=== PATIENT | male | born 1955 | race Caucasian/White ===

== ENCOUNTER 2018-07-06 09:39 | Inpatient (IN) | payer MEDICAID ==
[~2018-07-06] VITALS: Ht 175.3 cm; Wt 104.3 kg
--- NOTE | ~2018-07-06 | CON ---
[place], [place] REPORT OF CONSULTATION NAME: ED MARTINEZ UNIT #: [id number] ROOM: 403 DOCTOR: JANE SHERMAN MD, FACC BIRTHDATE: [birth year] DOS: 07/07/2018 CARDIOLOGY CONSULTATION HISTORY OF PRESENT ILLNESS: The patient came in with marked swelling of the right lower extremity below the knee and severe cellulitis and chronic thickening of the skin, but similar warmth on both sides, no cold legs, and could not feel the pulse because of severe edema but both the femoral pulses are good, maybe to some extent or less on the right than the left, inlet disease could be expected but does not appear to be critical. Still, the pulse is fairly good volume and good right femoral. The patient claims this is all started only several weeks ago, but I believe it could be even longer, that chronic infection could be a contributing factor. The patient has peripheral arterial disease with monophasic pulse on the right and underlying inlet disease may be of consideration, but there does not appear to be critical flow abnormalities. Hence, at this time, probably we could manage conservatively. PHYSICAL EXAMINATION: NECK: No jugular venous distention noted. Neck is supple. HEART: S1, S2 heard well. LUNGS: Diminished breath sounds at the bases. NEUROLOGIC: Cognition is good. IMPRESSION: He does not appear to have any significant cardiac decompensation clinically at this time. Dr. Bojorquez has seen the patient and sent him from the office and through the Emergency Room and admitted for further management. The patient is getting antibiotics and appropriate management for swelling and cellulitis of the right lower extremity. I did discuss with the Podiatry service and we try to manage conservatively. If and when in the near future if he needs to have further evaluation with an angiogram and intervention, I would be more than happy to do it appropriately at that time. The patient also has chronic diastolic heart failure. Inflow disease of the lower extremities may not be critical at this time. Thank you very much for the consult and we will follow the patient along with your service. [place], [place] REPORT OF CONSULTATION NAME: ED MARTINEZ UNIT #: [id number] ROOM: 403 DOCTOR: JANE SHERMAN MD, FACC BIRTHDATE: [birth year] JANE SHERMAN MD CM:CONSTR:REPORT OF CONSULTATION 1911 07/27/18 0819 interface
[~2018-07-06 09:39] MED LIST: ASPIR-TRIN325 MG PO; ASPIRIN81 M1 PO; B12,B-12,B 12500 MC1 PO; CEPHALEXIN500 M1 PO; CLEOCIN HCL300 MG PO; FUROSEMIDE40 MG PO; IBU800 MG PO; LIPITOR10 MG PO; LISINOPRIL10 M1 PO; METOPROLOL SUCC25 M2 PO; METOPROLOL TART50 M1 PO; VITAMIN D32000 UNI1 PO
[2018-07-06 09:43] VITALS: BP 190/82
[2018-07-06 10:06] VITALS: BP 164/88
[2018-07-06 11:18] LABS: BASO # 0.1 10*3/uL (0.0-0.1); BASO % 0.9 % (0.0-1.0); EOS # 0.3 10*3/uL (0.0-0.4); EOS % 2.5 % (1.0-4.0); HEMATOCRIT 43.1 % (42.0-52.0); HEMOGLOBIN 14.2 g/dl (14.0-18.0); LYMPH # 1.6 10*3/uL (1.3-4.4); LYMPH % 13.7 % (27.0-41.0); MEAN CELL VOLUME 95.6 fl (80.0-94.0); MEAN CORPUSCULAR HGB 31.5 pg (27.0-31.0); MEAN CORPUSCULAR HGB CONC 32.9 g/dl (33.0-37.0); MEAN PLATELET VOLUME 10.6 fl (9.6-12.3); MONO % 8.7 % (3.0-9.0); NEUT # 8.4 10*3/uL (2.3-7.9); NEUT % 73.9 % (47.0-73.0); PLATELET COUNT AUTOMATED 319 10*3/uL (130-400); RED BLOOD COUNT 4.51 10*6/uL (4.50-5.90); RED CELL DISTRI WIDTH 13.1 % (0-14.5); WHITE BLOOD COUNT 11.4 10*3/uL (4.8-10.8)
[2018-07-06 11:33] LABS: ALBUMIN 3.3 gm/dl (3.1-4.5); ALKALINE PHOSPHATASE 90 U/L (45-117); BUN 13 mg/dl (7-24); CHLORIDE 106 mmol/L (98-107); CREATININE 1.17 mg/dL (0.70-1.30); SGOT/AST 17 IU/L (3-35); SGPT/ALT 27 U/L (12-78); SODIUM 140 mmol/L (136-145); TOTAL PROTEIN 7.3 gm/dL (6.4-8.2)
[2018-07-06 12:40] VITALS: BP 176/86
--- NOTE | 2018-07-06 12:40 | NUR ---
A 63, admitted to , under the services of SATINDER Murray DO with a diagnosis of CELLULITIS RIGHT LOWER EXTREMITY. Chief complaint is SWELLING REDNESS TO RLE. Patient arrived via bed from ER. Monitor applied. Initial assessment completed. Vital signs taken and recorded. SATINDER MURRAY DO notified of admission to the unit. Orders received. See assessment for past medical history, medications and allergies. Patient and/or family oriented to unit. [address] visitation policy reviewed. Clothing/patient valuable form completed. REJI BRANDON R
--- NOTE | 2018-07-06 14:14 | NUR ---
[facility]AL CALLED AND WOUND CLINIC CON'T BE A CONSULT. DR. RAUSCH.
--- NOTE | 2018-07-06 14:16 | NUR ---
Spoke with Dr. Gonzalez regarding patient being consulted with wound and podiatry he stated to take Florina off since this patient is known to podiatry.
--- NOTE | 2018-07-06 14:17 | NUR ---
Spoke with Dr. Byers regarding patient arterial studies from ER and last admission. He stated he will see the patient later and doesn't need vascular surgery at this time but could use a vascular consult.
--- NOTE | 2018-07-06 14:21 | NUR ---
CALLED DR. KAISER AWARE OF CONSULT.
--- NOTE | 2018-07-06 14:27 | NUR ---
CALLED DR. SAM OFFICE THEY WILL SEND CONSULT TO HER.
--- NOTE | 2018-07-06 14:58 | NUR ---
CALLED DR. SHERMAN AWARE OF CONSULT. HE WILL STOP TONIGHT OR FIRST THING IN AM.
--- NOTE | 2018-07-06 15:49 | NUR ---
DR MENDEZ NOTIFIED OF MED REC UP TO DATE.
--- NOTE | 2018-07-06 15:50 | NUR ---
ED MARTINEZ [id number] Please refer to the physician's history and physical for past medical history, comorbid conditions, and allergies. Diagnosis: CELLULITIS OF RT LOWER EXTEREMITY Chema Score: 18,LOW OR NO RISK WOUND DESCRIPTIONS: WOUND NUMBER 1 RIGHT LOWER LEG. ERYTHEMA NOTED FROM KNEE TO ANKLE. NO OPEN AREAS NOTED TO RIGHT LOWER LEG. DRY FLAKY SKIN NOTED TO RIGHT LOWER LEG. WARM TO TOUCH. ARTERIAL AND VENOUS STUDIES PERFORMED IN ER. Surface the patient is resting on: Isoflex SKIN PREVENTION RECOMMENDATION: 1. Pressure redistribution support surface as appropriate 2. Elevate heels 3. Remove boots/TEDS every shift and reapply 4. Head of bed 30 degrees as tolerated 5. Assess nutrition and hydration 6. Manage moisture 7. Avoid the use of containment devices while in bed 8. Use absorptive products on surfaces limit layers of linens on bed 9. Turn and reposition every 1-2 hours in bed and every 1 hour in chair as tolerated 10. Weight shifts every 15 minutes while up in chair 11. Offloading with pillows or device to keep heels elevated off bed 12. Monitor skin at least every shift 13. Inspect under medical devices twice a day WOUND TREATMENT RECOMMENDATIONS: AWAIT ORDERS FROM PODIATRY DUE TO ARTERIAL STUDY RESULTS.
[2018-07-06 16:00] VITALS: BP 166/88
[2018-07-06 20:00] VITALS: BP 142/65
[2018-07-07] VITALS: BP 157/83
[2018-07-07 06:05] LABS: BASO # 0.1 10*3/uL (0.0-0.1); BASO % 1.1 % (0.0-1.0); EOS # 0.3 10*3/uL (0.0-0.4); EOS % 3.4 % (1.0-4.0); HEMOGLOBIN 13.2 g/dl (14.0-18.0); LYMPH # 1.4 10*3/uL (1.3-4.4); LYMPH % 18.6 % (27.0-41.0); MEAN CORPUSCULAR HGB 30.9 pg (27.0-31.0); MEAN CORPUSCULAR HGB CONC 32.2 g/dl (33.0-37.0); MONO # 0.7 10*3/uL (0.1-1.0); MONO % 9.5 % (3.0-9.0); NEUT # 4.9 10*3/uL (2.3-7.9); NEUT % 67.1 % (47.0-73.0); PLATELET COUNT AUTOMATED 283 10*3/uL (130-400); RED BLOOD COUNT 4.27 10*6/uL (4.50-5.90); RED CELL DISTRI WIDTH 12.9 % (0-14.5); WHITE BLOOD COUNT 7.3 10*3/uL (4.8-10.8)
[2018-07-07 06:13] LABS: INTERNATIONAL NORM RATIO 0.9 (2.0-3.5)
[2018-07-07 06:29] LABS: ALBUMIN 2.8 gm/dl (3.1-4.5); ALKALINE PHOSPHATASE 73 U/L (45-117); BUN 10 mg/dl (7-24); CHLORIDE 110 mmol/L (98-107); CREATININE 1.02 mg/dL (0.70-1.30); PHOSPHOROUS 3.1 mg/dL (2.5-4.9); SGOT/AST 17 IU/L (3-35); SGPT/ALT 22 U/L (12-78); SODIUM 143 mmol/L (136-145); TOTAL PROTEIN 6.3 gm/dL (6.4-8.2)
--- NOTE | 2018-07-07 07:05 | NUR ---
Dr. Byers will put in orders once he see patient today after 0900.
--- NOTE | 2018-07-07 07:30 | NUR ---
DR SHERMAN STATES HE WILL BE IN TO SEE PT TODAY
[2018-07-07 08:00] VITALS: BP 178/80
--- NOTE | 2018-07-07 09:00 | NUR ---
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 Patient states lives at home with alone. There are few steps in the home. Physician: resident clinic Pharmacy: [facility] health services: none Patient's level of ADLs: INDEPENDENT Patient has working utilities: all working DME: none Follow-up physician's appointment after d/c: will be made by hospitalist nurse director upon discharge Does patient want to access PORTAL?: no Discharge plan discussed with patient, patient lives at home alone, he is independent in adls and ambualtion, works, drives, patient states he will be going home when able and denies any home needs. JACQUE OWEN
[2018-07-07 09:05] VITALS: BP 152/80
--- NOTE | 2018-07-07 09:52 | NUR ---
WOUND CARE CONSULTED PER DR SAM REQUEST.
--- NOTE | 2018-07-07 10:34 | NUR ---
Occupational THerapy referral received and screen completed. Shanelle denies the need for any therapy and admits he is independent in all ADLs and mobility . Discharge OT referral. Thank you for this referral. Kerline Zapata OTR/L
--- NOTE | 2018-07-07 10:53 | NUR ---
Nutritional Support Services Note: Appetite is good for meals. He is eating 100% of all meals. Regular diet as ordered. Cellulitis noted of right lower ext. No Nutrition intervention needed at this time. Will follow as needed. Talia Coello Rdn Ld
--- NOTE | 2018-07-07 11:22 | NUR ---
PHYSICAL THERAPY PAtient reports (I) with all mobility and has no PT needs. D/C PT at this time. Thank you for this referral. Vlima Lewis,PT
[2018-07-07] MEDS ORDERED: KEFLEX500 M1 PO ×2 (14:29→15:06)
[2018-07-07] MEDS ORDERED: FLAGYL500 MG PO (15:06)
[2018-07-07] MEDS ORDERED: TERBINAFINE250 MG PO (15:08)
[2018-07-07] MEDS ORDERED: CORT DOME 0.5%30 GM T (15:09)
--- NOTE | 2018-07-07 16:05 | NUR ---
Discharge instructions reviewed with patient/family. Patient receptive and verbalizes understanding. Follow-up care arranged. Written instructions given to patient/family. RONI CAMARENA
== END 2018-07-07 17:05 | disposition home or self-care (01) | DRG 603 ==
LOC: ED 09:39 → EDHOLD 12:07 → 4E 12:07
PROVIDERS: Nurse Practitioner Family; Student in an Organized Health Care Education/Training Program; ADMIT Internal Medicine
DX: L03.115 Cellulitis of right lower limb (principal); I16.0 Hypertensive urgency; R73.9 Hyperglycemia, unspecified; I10 Essential (primary) hypertension; E66.01 Morbid (severe) obesity due to excess calories; F17.210 Nicotine dependence, cigarettes, uncomplicated; E55.9 Vitamin D deficiency, unspecified; L30.9 Dermatitis, unspecified; Z82.49 Family history of ischemic heart disease and other diseases of the circulatory system; Z79.899 Other long term (current) drug therapy; Z79.82 Long term (current) use of aspirin; Z68.33 Body mass index [BMI] 33.0-33.9, adult

== ENCOUNTER → 2018-08-03 | Outpatient (CLI) | payer MEDICAID ==
[~2018-08-03] MED LIST changes: +CORT DOME 0.5%30 GM T; +FLAGYL500 MG PO; +KEFLEX500 M1 PO; +TERBINAFINE250 MG PO
== END | disposition home or self-care (01) ==
LOC: RESCLI 01:27
DX: L03.90 Cellulitis, unspecified (principal); E78.5 Hyperlipidemia, unspecified; I47.1 Supraventricular tachycardia; E66.01 Morbid (severe) obesity due to excess calories; I10 Essential (primary) hypertension; E55.9 Vitamin D deficiency, unspecified; I83.10 Varicose veins of unspecified lower extremity with inflammation; Z79.899 Other long term (current) drug therapy

== ENCOUNTER → 2018-11-14 | Outpatient (CLI) | payer OTHER | END | disposition home or self-care (01) | LOC: RESCLI 00:48 | DX: E78.5 Hyperlipidemia, unspecified (principal); I47.1 Supraventricular tachycardia; I11.0 Hypertensive heart disease with heart failure; I50.30 Unspecified diastolic (congestive) heart failure; E66.01 Morbid (severe) obesity due to excess calories; I83.10 Varicose veins of unspecified lower extremity with inflammation; E55.9 Vitamin D deficiency, unspecified; F17.210 Nicotine dependence, cigarettes, uncomplicated; Z79.899 Other long term (current) drug therapy ==

== ENCOUNTER 2019-07-04 09:33 | Inpatient (IN) | payer OTHER ==
[~2019-07-04] VITALS: Ht 175.2 cm; Wt 109.6 kg
[2019-07-04] VITALS (8 sets, daily range): BP systolic 151–200; BP diastolic 72–98
[2019-07-04 10:34] LABS: BASO # 0.1 10*3/uL (0.0-0.1); BASO % 0.7 % (0.0-1.0); EOS # 0.2 10*3/uL (0.0-0.4); EOS % 2.3 % (1.0-4.0); HEMATOCRIT 43.3 % (42.0-52.0); LYMPH # 1.4 10*3/uL (1.3-4.4); LYMPH % 15.8 % (27.0-41.0); MEAN CELL VOLUME 93.5 fl (80.0-94.0); MEAN CORPUSCULAR HGB 30.9 pg (27.0-31.0); MEAN PLATELET VOLUME 10.6 fl (9.6-12.3); MONO # 0.9 10*3/uL (0.1-1.0); MONO % 10.6 % (3.0-9.0); NEUT # 6.2 10*3/uL (2.3-7.9); NEUT % 70.4 % (47.0-73.0); PLATELET COUNT AUTOMATED 274 10*3/uL (130-400); RED BLOOD COUNT 4.63 10*6/uL (4.50-5.90); RED CELL DISTRI WIDTH 13.1 % (0-14.5); WHITE BLOOD COUNT 8.9 10*3/uL (4.8-10.8)
[2019-07-04 10:46] LABS: ACT PARTIAL THROMBO TIME 26.9 SECONDS (20.0-32.1); INTERNATIONAL NORM RATIO 0.9 (2.0-3.5)
[2019-07-04 10:48] LABS: ALBUMIN 3.1 gm/dl (3.1-4.5); ALKALINE PHOSPHATASE 81 U/L (45-117); BUN 10 mg/dl (7-24); CHLORIDE 102 mmol/L (98-107); CREATININE 0.81 mg/dL (0.70-1.30); POTASSIUM 3.8 mmol/L (3.5-5.1); SGOT/AST 38 IU/L (3-35); SGPT/ALT 37 U/L (12-78); SODIUM 134 mmol/L (136-145); TOTAL PROTEIN 6.8 gm/dL (6.4-8.2)
[2019-07-04] MEDS ORDERED: ASPIRIN CHEWABL81 MG PO (14:16)
[2019-07-05] VITALS: BP 137/68
[2019-07-05 06:14] LABS: CHLORIDE 105 mmol/L (98-107); POTASSIUM 4.5 mmol/L (3.5-5.1); SODIUM 138 mmol/L (136-145); TOTAL PROTEIN 6.9 gm/dL (6.4-8.2)
[2019-07-05 06:15] LABS: BASO % 0.1 % (0.0-1.0); HEMATOCRIT 46.8 % (42.0-52.0); LYMPH # 0.7 10*3/uL (1.3-4.4); LYMPH % 8.2 % (27.0-41.0); MEAN CORPUSCULAR HGB 30.7 pg (27.0-31.0); MEAN CORPUSCULAR HGB CONC 32.7 g/dl (33.0-37.0); MEAN PLATELET VOLUME 10.5 fl (9.6-12.3); MONO # 0.2 10*3/uL (0.1-1.0); MONO % 1.8 % (3.0-9.0); NEUT % 89.5 % (47.0-73.0); PLATELET COUNT AUTOMATED 294 10*3/uL (130-400); RED BLOOD COUNT 4.98 10*6/uL (4.50-5.90); WHITE BLOOD COUNT 8.9 10*3/uL (4.8-10.8)
[2019-07-05 06:24] LABS: ALBUMIN 2.9 gm/dl (3.1-4.5); ALKALINE PHOSPHATASE 78 U/L (45-117); BUN 9 mg/dl (7-24); CHOLESTEROL 144 mg/dL (<200); CREATININE 0.79 mg/dL (0.70-1.30); FREE T4 1.22 ng/dl (0.76-1.46); HDL CHOLESTEROL 53 mg/dl (40-60); LDL CHOLESTEROL 81 mg/dL (9-159); PHOSPHOROUS 3.4 mg/dL (2.5-4.9); SGOT/AST 27 IU/L (3-35); SGPT/ALT 33 U/L (12-78); THYROID STIM HORMONE (HS) 0.414 uIU/ml (0.358-4.75); TRIGLYCERIDES 48 mg/dl (<150); VLDL CHOLESTEROL 10 mg/dL (6-40)
[2019-07-05 06:38] LABS: ACT PARTIAL THROMBO TIME 27.2 SECONDS (20.0-32.1); INTERNATIONAL NORM RATIO 0.9 (2.0-3.5)
[2019-07-05 07:27] LABS: VITAMIN D, 25-HYDROXY 84.7 ng/mL (30-100)
[2019-07-05 08:00] VITALS: BP 164/84
[2019-07-05 12:00] VITALS: BP 168/80
[2019-07-05 16:00] VITALS: BP 182/80
[2019-07-05 20:00] VITALS: BP 160/80
[2019-07-06] VITALS: BP 153/63
[2019-07-06 05:59] LABS: BUN 13 mg/dl (7-24); CHLORIDE 105 mmol/L (98-107); CREATININE 0.82 mg/dL (0.70-1.30); POTASSIUM 4.8 mmol/L (3.5-5.1); SODIUM 139 mmol/L (136-145)
[2019-07-06 06:25] LABS: BASO % 0.1 % (0.0-1.0); HEMATOCRIT 45.3 % (42.0-52.0); LYMPH # 1.1 10*3/uL (1.3-4.4); LYMPH % 6.7 % (27.0-41.0); MEAN CELL VOLUME 94.6 fl (80.0-94.0); MEAN CORPUSCULAR HGB 31.1 pg (27.0-31.0); MEAN CORPUSCULAR HGB CONC 32.9 g/dl (33.0-37.0); MEAN PLATELET VOLUME 11.1 fl (9.6-12.3); MONO # 0.7 10*3/uL (0.1-1.0); MONO % 4.7 % (3.0-9.0); NEUT # 13.8 10*3/uL (2.3-7.9); NEUT % 87.9 % (47.0-73.0); PLATELET COUNT AUTOMATED 300 10*3/uL (130-400); RED BLOOD COUNT 4.79 10*6/uL (4.50-5.90); RED CELL DISTRI WIDTH 13.3 % (0-14.5); WHITE BLOOD COUNT 15.7 10*3/uL (4.8-10.8)
[2019-07-06 08:00] VITALS: BP 181/90
[2019-07-06] MEDS ORDERED: PREDNISONE10 MG PO (11:49)
[2019-07-06] MEDS ORDERED: MUCUS RELIEF600 MG PO (11:49)
[2019-07-06] MEDS ORDERED: DOXYCYCLINE100 M3 PO (11:49)
[2019-07-06 11:53] VITALS: BP 162/88
[2019-07-06 12:00] VITALS: BP 170/88
[2019-07-06] MEDS ORDERED: LISINOPRIL20 MG PO (13:45)
[2019-07-06] MEDS ORDERED: HYDR12.5C PO (13:45)
== END 2019-07-06 14:51 | disposition home or self-care (01) | DRG 602 ==
LOC: ED 09:33 → 4E 10:45 → EDHOLD 10:45 → 4E 11:04
PROVIDERS: Emergency Medicine; Hospitalist; Internal Medicine; Podiatrist Foot & Ankle Surgery; ADMIT Internal Medicine
DX: L03.115 Cellulitis of right lower limb (principal); J18.9 Pneumonia, unspecified organism; E87.1 Hypo-osmolality and hyponatremia; J44.1 Chronic obstructive pulmonary disease with (acute) exacerbation; J44.0 Chronic obstructive pulmonary disease with (acute) lower respiratory infection; R73.9 Hyperglycemia, unspecified; L23.7 Allergic contact dermatitis due to plants, except food; E78.00 Pure hypercholesterolemia, unspecified; E66.01 Morbid (severe) obesity due to excess calories; E78.5 Hyperlipidemia, unspecified; R74.0 Nonspecific elevation of levels of transaminase and lactic acid dehydrogenase [LDH]; I10 Essential (primary) hypertension; F17.210 Nicotine dependence, cigarettes, uncomplicated; I87.2 Venous insufficiency (chronic) (peripheral); Z68.35 Body mass index [BMI] 35.0-35.9, adult; Z79.899 Other long term (current) drug therapy; Z82.49 Family history of ischemic heart disease and other diseases of the circulatory system; Z79.82 Long term (current) use of aspirin; Z71.6 Tobacco abuse counseling

== ENCOUNTER 2020-12-08 14:49 | Inpatient (IN) | payer OTHER, MEDICAID ==
[~2020-12-08] VITALS: Ht 175.3 cm; Wt 99.4 kg
[~2020-12-08 14:49] MED LIST changes: +ASPIRIN CHEWABL81 MG PO; +DOXYCYCLINE100 M3 PO; +HYDR12.5C PO; +LISINOPRIL20 MG PO; +MUCUS RELIEF600 MG PO; +PREDNISONE10 MG PO
[2020-12-08 15:00] VITALS: BP 181/88
[2020-12-08 15:36] LABS: BASO % 0.2 % (0.0-1.0); EOS % 0.2 % (1.0-4.0); LYMPH # 1.3 10*3/uL (1.3-4.4); LYMPH % 21.6 % (27.0-41.0); MEAN CELL VOLUME 85.2 fl (80.0-94.0); MEAN PLATELET VOLUME 9.2 fl (9.6-12.3); MONO # 0.6 10*3/uL (0.1-1.0); NEUT # 3.8 10*3/uL (2.3-7.9); NEUT % 66.4 % (47.0-73.0); PLATELET COUNT AUTOMATED 313 10*3/uL (130-400); RED BLOOD COUNT 4.93 10*6/uL (4.50-5.90); RED CELL DISTRI WIDTH 14.5 % (0-14.5); WHITE BLOOD COUNT 5.8 10*3/uL (4.8-10.8)
[2020-12-08 15:48] LABS: ACT PARTIAL THROMBO TIME 29.7 SECONDS (20.0-32.1)
[2020-12-08 16:02] LABS: ALKALINE PHOSPHATASE 65 U/L (45-117); BUN 13 mg/dl (7-24); CHLORIDE 88 mmol/L (98-107); CREATININE 0.85 mg/dL (0.70-1.30); LIPASE 169 U/L (73-393); POTASSIUM 4.2 mmol/L (3.5-5.1); SGOT/AST 17 IU/L (3-35); SGPT/ALT 16 U/L (12-78); SODIUM 126 mmol/L (136-145); TOTAL PROTEIN 8.1 gm/dL (6.4-8.2)
[2020-12-08 16:05] LABS: TROPONIN I < 0.015 ng/ml (<0.045)
[2020-12-08 18:46] VITALS: BP 151/71
[2020-12-09] VITALS: BP 144/75
[2020-12-09 06:50] LABS: BASO % 0.3 % (0.0-1.0); HEMATOCRIT 42.4 % (42.0-52.0); LYMPH # 0.7 10*3/uL (1.3-4.4); LYMPH % 22.1 % (27.0-41.0); MEAN CELL VOLUME 85.7 fl (80.0-94.0); MEAN CORPUSCULAR HGB 28.7 pg (27.0-31.0); MEAN CORPUSCULAR HGB CONC 33.5 g/dl (33.0-37.0); MEAN PLATELET VOLUME 9.4 fl (9.6-12.3); MONO # 0.1 10*3/uL (0.1-1.0); MONO % 3.4 % (3.0-9.0); NEUT # 2.3 10*3/uL (2.3-7.9); NEUT % 72.3 % (47.0-73.0); PLATELET COUNT AUTOMATED 329 10*3/uL (130-400); RED BLOOD COUNT 4.95 10*6/uL (4.50-5.90); RED CELL DISTRI WIDTH 14.3 % (0-14.5); WHITE BLOOD COUNT 3.2 10*3/uL (4.8-10.8)
[2020-12-09 07:30] LABS: ALBUMIN 2.7 gm/dl (3.1-4.5); ALKALINE PHOSPHATASE 62 U/L (45-117); BUN 13 mg/dl (7-24); CHLORIDE 91 mmol/L (98-107); LDH 133 U/L (87-241); POTASSIUM 4.1 mmol/L (3.5-5.1); SGOT/AST 13 IU/L (3-35); SGPT/ALT 17 U/L (12-78); SODIUM 126 mmol/L (136-145); TOTAL PROTEIN 7.6 gm/dL (6.4-8.2)
[2020-12-09 08:00] VITALS: BP 130/70
[2020-12-09 12:00] VITALS: BP 132/78
[2020-12-09 16:00] VITALS: BP 138/82
[2020-12-09 20:00] VITALS: BP 154/70
[2020-12-10] VITALS: BP 153/75
[2020-12-10 06:21] LABS: BASO % 0.1 % (0.0-1.0); HEMATOCRIT 41.6 % (42.0-52.0); MEAN CORPUSCULAR HGB 28.7 pg (27.0-31.0); MEAN CORPUSCULAR HGB CONC 33.4 g/dl (33.0-37.0); MEAN PLATELET VOLUME 9.4 fl (9.6-12.3); MONO % 7.3 % (3.0-9.0); NEUT # 11.9 10*3/uL (2.3-7.9); NEUT % 84.4 % (47.0-73.0); PLATELET COUNT AUTOMATED 392 10*3/uL (130-400); RED BLOOD COUNT 4.84 10*6/uL (4.50-5.90); RED CELL DISTRI WIDTH 14.3 % (0-14.5); WHITE BLOOD COUNT 14.1 10*3/uL (4.8-10.8)
[2020-12-10 06:42] LABS: ALBUMIN 2.7 gm/dl (3.1-4.5); ALKALINE PHOSPHATASE 61 U/L (45-117); BUN 13 mg/dl (7-24); CHLORIDE 94 mmol/L (98-107); LDH 153 U/L (87-241); POTASSIUM 4.1 mmol/L (3.5-5.1); SGOT/AST 13 IU/L (3-35); SGPT/ALT 18 U/L (12-78); SODIUM 129 mmol/L (136-145); TOTAL PROTEIN 7.3 gm/dL (6.4-8.2)
[2020-12-10 08:00] VITALS: BP 155/74
[2020-12-10 12:00] VITALS: BP 147/74
[2020-12-10 16:00] VITALS: BP 156/81
== END 2020-12-10 17:27 | disposition home or self-care (01) | DRG 871 ==
LOC: ED 14:49 → EDHOLD 17:28 → 4E 17:28
PROVIDERS: Emergency Medicine; Internal Medicine; ADMIT Student in an Organized Health Care Education/Training Program; ATTEND Student in an Organized Health Care Education/Training Program
PROC: XW033E5 Introduction of Remdesivir Anti-infective into Peripheral Vein, Percutaneous Approach, New Technology Group 5 (ICD-10-PCS; principal; 2020-12-09)
DX: A41.9 Sepsis, unspecified organism (principal); U07.1 COVID-19; J96.01 Acute respiratory failure with hypoxia; J12.82 Pneumonia due to coronavirus disease 2019; E87.1 Hypo-osmolality and hyponatremia; E44.0 Moderate protein-calorie malnutrition; I10 Essential (primary) hypertension; E87.8 Other disorders of electrolyte and fluid balance, not elsewhere classified; R73.9 Hyperglycemia, unspecified; Z68.32 Body mass index [BMI] 32.0-32.9, adult; D64.9 Anemia, unspecified; E83.39 Other disorders of phosphorus metabolism

== ENCOUNTER 2020-12-20 08:21 | Emergency (ER) | payer OTHER, MEDICAID ==
[~2020-12-20] VITALS: Ht 175.2 cm; Wt 98.4 kg
[2020-12-24] MEDS ORDERED: AMLODIPINE BESYL5 MG PO (15:09)
[2020-12-24] MEDS ORDERED: METOPROLOL SUCC50 M1 PO (15:10)
[2020-12-24] MEDS ORDERED: LISINOPRIL-HCT1 EACH PO (15:12)
[2020-12-24] MEDS ORDERED: VITAMIN D31250 MCG PO (15:19)
[2020-12-25] MEDS ORDERED: VITAMIN D31250 MC1 PO (16:37)
[2020-12-30] MEDS ORDERED: PROAIR HFA8.5 GM INH (00:32)
[2020-12-30] MEDS ORDERED: GOOD NEIGHBOR L10 MG PO (13:54)
== END 2020-12-20 09:04 | disposition home or self-care (01) ==
LOC: ED 08:21
DX: I16.0 Hypertensive urgency (principal)